=== PATIENT | female | born 1980 | race Caucasian/White ===

== ENCOUNTER → 2021-05-21 17:14 | Outpatient (CLI) | payer BC, SELFPAY ==
[2021-05-21 20:42] LABS: INR 0.95 (0.9-1.1); Prothrombin Time 10.8 seconds (10.1-12.5)
[2021-05-23 13:28] LABS: Actin (Smooth Muscle) Antibody 6 Units (0-19); Mitochondrial (M2) Antibody <20.0 Units (0.0-20.0)
[2021-05-23 21:15] LABS: Antinuclear Antibodies, IFA Negative (.)
[2021-05-24 14:22] LABS: Histoplasma Gal'mannan Ag Ur <0.5 (<0.5 ng/mL)
[2021-05-24 16:12] LABS: Alkaline Phosphatase 189 IU/L (44-121); Bone Fraction: 32 % (14-68); Intestinal Frac.: 8 % (0-18); Liver Fraction: 60 % (18-85)
== END ==
PROVIDERS: PCP Family Medicine; Visit Provider Internal Medicine Gastroenterology
DX: R10.13 Epigastric pain (principal); R19.4 Change in bowel habit; K58.9 Irritable bowel syndrome, unspecified; K21.9 Gastro-esophageal reflux disease without esophagitis
CPT/HCPCS: 36415; 84075; 84080; 85610; 86038; 86255; 86256; 87385